=== PATIENT | female | born 1940 | race Caucasian/White ===

== ENCOUNTER 2016-12-09 19:10 | Emergency (ER) | payer MEDICARE, BC ==
[~2016-12-09] VITALS: Ht 167.6 cm; Wt 113.6 kg
[~2016-12-09 19:10] MED LIST: ALDACTAZIDE 251 TAB PO; FIBER TABLETS1 TAB PO; GELATIN CAPSUL650 MG PO; MULTIPLE VITAMI1 CAP PO; OSCAL 500 TAB500 MG PO; VERAPAMIL 440 MG/TAB
[2016-12-09 19:14] VITALS: PULSE 168
== END 2016-12-09 22:00 | disposition expired ==
LOC: COL.ER 19:10
DX: I46.9 Cardiac arrest, cause unspecified (principal); I10 Essential (primary) hypertension
CPT/HCPCS: J0171